=== PATIENT | female | born 1950 | race Caucasian/White ===

== ENCOUNTER 2017-04-03 10:26 | Emergency (ER) | payer MEDICARE, OTHER, SELFPAY ==
[2017-04-03 10:49] VITALS: BP 147/82; PULSE 68; RESP 20; TEMP 36.9; O2SAT 95; BMI 33.3
--- NOTE | 2017-04-03 10:57 | XR_ITS ---
XR chest 2V HISTORY: ITS.REASON: COUGH ORDERING PHYSICIAN: Court Christopher PATIENT AGE: 66 years COMPARISON: None available FINDINGS: Normal heart size. There is some increased density left hilum probably related to overlying pulmonary artery and may be confirmed with follow-up. Coronary artery calcifications are present.. The lungs are clear without infiltrates, suspicious nodules, or pleural effusions. Mild hyperinflation with attenuation of the pulmonary vessels consistent with COPD/obstructive chronic bronchitis No acute bony abnormalities. IMPRESSION: COPD, nonacute findings as described above
--- NOTE | 2017-04-03 10:57 | HMH.EDUTC ---
[facility] [place] Impression: Influenza Disposition: Home, Self-Care Condition on Discharge: Good Instructions: Influenza, Cough Additional Instructions: ? Start Tamiflu today if you are going to take it. Discussed risk and possible benefits. ? Lots of rest ? Increase Fluids water, Gatorade, powerade, pedialyte,if infant/toddler/child ? Alternate Tylenol and / or ibuprofen as discussed for fever, aches, chills x 24 hours without medication for symptoms ? Follow up IMMEDIATELY for new or worsening Symptoms OR no noticeable improvement over the next 48-72 hours, 911 for difficulty or breathing ? You or your child area contagious until no fever, aches, chills for 24 hours with medication for symptoms Prescriptions: Dextromethorphan Polistirex [Delsym] 10 ml PO Q12H #200 genesis.er.12h Oseltamivir Phosphate [Tamiflu 75mg Capsule] 75 mg PO BID #10 capsule Referrals: Stan Dahl MD [Primary Care Provider] - Time of Disposition: 11:33 Medical Decision Making Vital Signs: 04/03/17 10:49 Temperature 98.4 F Temperature Source Temporal Artery Scan Pulse Rate [Right Brachial] 68 Respiratory Rate 20 Blood Pressure [Right Arm] 147/82 Blood Pressure Mean [Right Arm] 103 Blood Pressure Source [Right Arm] Automatic Cuff Blood Pressure Position [Right Arm] Sitting 02 Sat by Pulse Oximetry 95 Oxygen Delivery Method Room Air - Lab Data Lab Results 04/03/17 10:55: Influenza Type A Ag Positive A, Influenza Type B Ag Negative Orders (Tests/Meds): ORDERS Category Date Time Status Chest XR 2 view (NOT portable) [XR chest 2V] Stat Exams 04/03/17 10:57 Taken - Radiology Data #1 Image(s): Chest Image Reviewed: Yes I discussed the image results w/the radiologist Preliminary Findings: Normal/NAD - Milton Inquiry Pt receiving controlled substance: No [place] was queried for this patient: No [facility] [place] - General Stated complaint: cough congested stiff neck Mode of Arrival: Ambulatory Source of Information: Patient Limitations: No Limitations Description of Symptoms (Recalled from Triage Doc. by RN): C/O COUGH AND CONGESTION HEENT Symptoms (Recalled from RN notes): No Resp Symptoms (Recalled from RN notes): Yes (COUGH AND CONGESTION) Skin Symptoms (Recalled from RN notes): No MS Symptoms (Recalled from RN notes): No Functional Status (Recalled from RN notes): N/A - History of Present Illness Provider Complaint: Patient state that she feels like she may have bronchitis State that she has had a cough for several weeks that has continued and having sinus pain and pressure State that she has had bronchitis several times this year and feels simular to that State that she feels like her lymph nodes in her neck is swollen and has been coughing so much her neck muscles feel sore - Related Data Home Medications Medication Instructions Recorded Confirmed Aspirin [Aspirin 81mg chewable 81 mg PO DAILY 04/03/17 04/03/17 tab] Atorvastatin Calcium [Atorvastatin 40 mg PO DAILY 04/03/17 04/03/17 40mg Tab] Furosemide [Furosemide 20mg Tab] 20 mg PO DAILY 04/03/17 04/03/17 Pantoprazole Sodium [Protonix 40mg 40 mg PO DAILY 04/03/17 04/03/17 tablet] Previous Rx's Medication Instructions Recorded Dextromethorphan Polistirex 10 ml PO Q12H #200 genesis.er.12h 04/03/17 [Delsym] Oseltamivir Phosphate [Tamiflu 75 mg PO BID #10 cap 04/03/17 75mg Capsule] Allergies Allergy/AdvReac Type Severity Reaction Status Date / Time No Known Allergies Allergy Unverified 03/12/17 15:03 - Worker's Comp Is this a Worker's Comp case?: No [facility] History I have reviewed the patient's past medical history: Yes - *Social History Smoking Status: Never smoker Alcohol Intake: never - Psychiatric History Expresses thoughts of harming self/others: None Suicide Plan Description: No Plan ROS Obtained: Yes All systems reviewed & no additional complaints Physical Exam - General General
--- NOTE | 2017-04-03 11:00 | ED_ITS ---
[facility] – [place] Clinical Impression: Influenza Disposition: Home, Self-Care Condition on Discharge: Good Instructions: Influenza, Cough Additional Instructions: ? Start Tamiflu today if you are going to take it. Discussed risk and possible benefits. ? Lots of rest ? Increase Fluids water, Gatorade, powerade, pedialyte,if infant/toddler/child ? Alternate Tylenol and / or ibuprofen as discussed for fever, aches, chills x 24 hours without medication for symptoms ? Follow up IMMEDIATELY for new or worsening Symptoms OR no noticeable improvement over the next 48-72 hours, 911 for difficulty or breathing ? You or your child area contagious until no fever, aches, chills for 24 hours with medication for symptoms Prescriptions: Dextromethorphan Polistirex [Delsym] 10 ml PO Q12H #200 genesis.er.12h Oseltamivir Phosphate [Tamiflu 75mg Capsule] 75 mg PO BID #10 capsule Referrals: Stan Dahl MD [Primary Care Provider] - Time of Disposition: 11:33 Medical Decision Making Vital Signs: 04/03/17 10:49 Temperature 98.4 F Temperature Source Temporal Artery Scan Pulse Rate [Right Brachial] 68 Respiratory Rate 20 Blood Pressure [Right Arm] 147/82 Blood Pressure Mean [Right Arm] 103 Blood Pressure Source [Right Arm] Automatic Cuff Blood Pressure Position [Right Arm] Sitting 02 Sat by Pulse Oximetry 95 Oxygen Delivery Method Room Air - Lab Data Lab Results 04/03/17 10:55: Influenza Type A Ag Positive A, Influenza Type B Ag Negative Orders (Tests/Meds): ORDERS Category Date Time Status Chest XR 2 view (NOT portable) [XR chest 2V] Stat Exams 04/03/17 10:57 Taken - Radiology Data #1 Image(s): Chest Image Reviewed: Yes I discussed the image results w/the radiologist Preliminary Findings: Normal/NAD - Milton Inquiry Pt receiving controlled substance: No Milton was queried for this patient: No [facility] [place] HPI - General Stated complaint: cough congested stiff neck Mode of Arrival: Ambulatory Source of Information: Patient Limitations: No Limitations Description of Symptoms (Recalled from Triage Doc. by RN): C/O COUGH AND CONGESTION HEENT Symptoms (Recalled from RN notes): No Resp Symptoms (Recalled from RN notes): Yes (COUGH AND CONGESTION) Skin Symptoms (Recalled from RN notes): No MS Symptoms (Recalled from RN notes): No Functional Status (Recalled from RN notes): N/A - History of Present Illness Provider Complaint: Patient state that she feels like she may have bronchitis State that she has had a cough for several weeks that has continued and having sinus pain and pressure State that she has had bronchitis several times this year and feels simular to that State that she feels like her lymph nodes in her neck is swollen and has been coughing so much her neck muscles feel sore - Related Data Home Medications Medication Instructions Recorded Confirmed Aspirin [Aspirin 81mg chewable 81 mg PO DAILY 04/03/17 04/03/17 tab] Atorvastatin Calcium [Atorvastatin 40 mg PO DAILY 04/03/17 04/03/17 40mg Tab] Furosemide [Furosemide 20mg Tab] 20 mg PO DAILY 04/03/17 04/03/17 Pantoprazole Sodium [Protonix 40mg 40 mg PO DAILY 04/03/17 04/03/17 tablet] Previous Rx's Medication Instructions Recorded Dextromethorphan Polistirex 10 ml PO Q12H #200 genesis.er.12h 04/03/17
[2017-04-03 11:09] LABS: UTC Influenza A Antigen Positive (Negative); UTC Influenza B Antigen Negative (Negative)
== END 2017-04-03 11:37 | disposition home or self-care (01) ==
PROVIDERS: Emergency Provider Nurse Practitioner; PCP Internal Medicine
DX: J10.1 Influenza due to other identified influenza virus with other respiratory manifestations (principal)
CPT/HCPCS: G0463; 71046; 87804; 99202

== ENCOUNTER → 2017-11-07 06:25 | Outpatient (CLI) | payer MEDICARE, OTHER, SELFPAY ==
--- NOTE | 2017-11-07 06:28 | NM_ITS ---
History and Indications: Coronary artery disease, history of NM, fatigue and left arm pain Procedure: Patient exercised on Frantz protocol 6 minutes, resting heart rate was 64 bpm, resting blood pressure 157/80, with exercise maximum heart rate achieved was 1 42 bpm which is equal to 94% of the maximum predicted heart rate and a blood pressure was 196/92. Test was stopped due to fatigue patient denied any complained of chest pain, patient has adequate exercise capacity achieved 7 mets of workload on treadmill, the blood pressure response to exercise was adequate. Electrocardiogram: Resting electrocardiogram showed sinus rhythm, with exercise there is less than 1.[address] segment depression noted from the baseline EKG. The EKG portion of the exercise Myoview is negative for ischemia. Cardiac stress and resting SPECT images: Cardiac stress and rest SPECT images were obtained using technetium 99 Myoview 30.4 mCi at stress and 10.1 mCi at rest. Gated SPECT further analysis of segmental wall motion and calculation of ejection fraction also done. Cardiac stress and rest images show uniform myocardial activity without any segmental perfusion abnormality, computer derived ejection fraction is 63% with no obvious regional wall motion abnormality, right ventricle is normal size and contractility. Conclusion: 1. The EKG portion of the exercise Myoview is negative for ischemia, patient has adequate exercise capacity achieved 7mets of workload on treadmill, the blood pressure response to exercise was adequate, there was no exercise-induced chest discomfort. 2. No obvious scintigraphic evidence of reversible ischemia seen, computer derived ejection fraction is 63% with no obvious regional wall motion abnormality, right ventricle is normal size and contractility. 3. Normal exercise Myoview study.
--- NOTE | 2017-11-07 06:28 | CA_ITS ---
PROCEDURE: 2-D M-mode and color Doppler study INDICATIONS FOR THE TEST: Chest pain COPD Heart Murmur Tobacco Smoking Palpitations Fatigue Syncope Edema+ Hypertension+Diabetes Mellitus Rheumatic Fever SOB+ALEGRIA Obesity Hyperlipidemia+ Family History HD Additional History LT arm pain, CAD, KHOI, emphysema PATIENT INFORMATION HEIGHT: 65 WEIGHT: 210 GENDER: Female B/P: 132/80 2-D/M-MODE INTERPRETATION: 2-D MEASUREMENTS OBSERVED VALUES IN CMS Right Ventricular Dimension (RVDd) 2.5 Interventricular Septum (Thickness)(IVsd) 1.0 Left Ventricular Internal Dimensions(LVIDd) 5.1 Left Ventricular Posterior Wall (Thickness)(LVPWd) 1.0 Aortic Root 3.6 Aortic Cusp Separation 2.6 Left Atrial Dimensions (LAD) 3.8 2D 1. Left atrium is qualitatively mildly enlarged, left ventricle is normal size, mild qualitative concentric left ventricular hypertrophy, visually estimated ejection fraction 55% with no obvious regional wall motion abnormality. 2. The right atrium and right ventricle are normal size and contractility. 3. The aortic valve is minimally thickened and fibrosed. 4. The mitral and tricuspid valve are grossly normal. 5. The pulmonic valve is poorly visualized. 6. No significant pericardial effusion noted. DOPPLER INTERROGATION: Doppler interrogation of the aortic, mitral and tricuspid valvular presence of mild mitral and tricuspid regurgitation, tricuspid regurgitation jet velocity is insufficient for acquisition of the right ventricular systolic pressure, grade 1 diastolic dysfunction seen with tissue Doppler evidence of raised left atrial pressure. Mild aortic insufficiency also seen. CONCLUSION: 1. Mildly left atrium, normal left ventricular size, mild qualitative concentric left ventricular hypertrophy, visually estimated ejection fraction 55% with no obvious regional wall motion abnormality, grade 1 diastolic dysfunction seen with tissue Doppler evidence of raised left atrial pressure. 2. Mild aortic, mitral and tricuspid regurgitation 3. No significant pericardial effusion noted.
--- NOTE | 2017-11-07 10:32 | HMH.ITSHM ---
ASA ATORVASTATIN PANTOPROZOLE FUROSEMIDE
== END ==
PROVIDERS: Visit Provider Internal Medicine
DX: I25.10 Atherosclerotic heart disease of native coronary artery without angina pectoris (principal)
CPT/HCPCS: 78452; 93017; 93306; A9502

== ENCOUNTER → 2018-02-17 10:24 | Outpatient (CLI) | payer MEDICARE, OTHER, SELFPAY ==
[2018-02-17 10:48] LABS: Basophils # 0.1 K/mm3 (0-0.2); Basophils % 0.9 % (0.1-2.0); Eosinophils # 0.1 K/mm3 (0.0-0.4); Eosinophils % 2.3 % (0.1-12.0); Hematocrit 42.5 % (37.0-47.0); Hemoglobin 13.6 g/dL (12.2-16.2); Lymphocytes # 1.1 K/mm3 (0.7-4.5); Lymphocytes % 18.7 % (10-50); Mean Corpuscular HGB Conc 32.1 g/dL (31.8-35.4); Mean Corpuscular Hemoglobin 29.8 pg (27.0-31.2); Mean Platelet Volume 7.2 fl (7.4-10.4); Monocytes # 0.3 K/mm3 (0.1-1.0); Monocytes % 5.8 % (1.7-9.3); Neutrophils # 4.3 K/mm3 (1.8-7.8); Neutrophils % 72.3 % (37.0-80.0); Platelet Count 368 K/mm3 (142-424); Red Blood Count 4.57 M/mm3 (4.20-5.40); Red Cell Distribution Width 14.1 % (11.5-17.5); White Blood Count 5.9 K/mm3 (4.8-10.8)
[2018-02-17 11:43] LABS: Alanine Aminotransferase 27 U/L (12-78); Albumin Level 3.4 gm/dL (3.4-5.0); Alkaline Phosphatase 110 U/L (46-116); Anion Gap 12.7 mEq/L (5-15); Aspartate Amino Transferase 15 U/L (15-37); Bilirubin,Direct 0.2 mg/dL (0.0-0.2); Bilirubin,Indirect 0.5 mg/dL (0.0-0.9); Bilirubin,Total 0.7 mg/dL (0.2-1.0); Blood Urea Nitrogen 9 mg/dL (7-18); Calcium 8.7 mg/dL (8.5-10.1); Carbon Dioxide 28 mmol/L (21.0-32.0); Chloride 104 mmol/L (98-107); Chol/HDL Ratio 2.3 (1-3.5); Cholesterol 149 mg/dL (140-200); Creatinine,Serum 0.48 mg/dL (0.55-1.02); Estimated Glomerular Filt Rate 128 ml/min (>60); Free T4 (Free Thyroxine) 1.05 ng/dl (0.76-1.46); GFR (African American) 155 ML/MIN (>60); Glucose 98 mg/dL (74-106); HDL Cholesterol 64 mg/dL (29-89); LDL Cholesterol 71 mg/dL (0-130); Potassium 4.7 mmoL/L (3.5-5.1); Sodium 140 mmol/L (136-145); Thyroid Stimulating Hormone 1.35 uIU/ml (0.358-3.740); Total Protein,Serum 6.6 gm/dL (6.4-8.2); Triglycerides 69 mg/dL (30-200); VLDL Cholesterol 14 mg/dL (0-40)
== END ==
PROVIDERS: Visit Provider Internal Medicine
DX: E78.5 Hyperlipidemia, unspecified (principal); I25.10 Atherosclerotic heart disease of native coronary artery without angina pectoris; I65.29 Occlusion and stenosis of unspecified carotid artery; M79.601 Pain in right arm; I11.9 Hypertensive heart disease without heart failure
CPT/HCPCS: 36415; 80048; 80061; 80076; 84439; 84443; 85025

== ENCOUNTER → 2018-02-24 10:05 | Outpatient (CLI) | payer MEDICARE, OTHER, SELFPAY ==
--- NOTE | 2018-02-24 10:08 | CI_ITS ---
Cerebrovascular Exam Indications: 433.10 Occlusion/stenosis of carotid artery without cerebral infarction. IMPRESSIONS 1. The bilateral vertebral arteries are patent with normal antegrade flow. 2. Study suggests less than 20% stenosis involving the right internal carotid artery and the left internal carotid artery. 3. Tortuous carotid arteries seen bilaterally. Carotid duplex study. Complete study and Doppler flow study including spectral analysis, color and ybarra scale imaging. Height: Height: 165.1cm. Height: 65in. Weight: Weight: 90.7kg. Weight: 199.6lb. Body mass index: BMI: 33.3kg/m^2. Body surface area: BSA: 2.07m^2. Location: Vascular laboratory. Patient status: Outpatient. Tables: Arterial flow: + +--------+--------+ Location V sys V ed + +--------+--------+ Right CCA - proximal 57.4cm/s 17.3cm/s + +--------+--------+ Right CCA - distal 55.8cm/s 22cm/s + +--------+--------+ Right ECA 42.4cm/s -------- + +--------+--------+ Right ICA - proximal 68.4cm/s 27.5cm/s + +--------+--------+ Right ICA - mid 78.2cm/s 38.1cm/s + +--------+--------+ Right ICA - distal 84.9cm/s 31.4cm/s + +--------+--------+ Right vertebral 28.3cm/s -------- + +--------+--------+ Left CCA - proximal 65.2cm/s 22cm/s + +--------+--------+ Left CCA - distal 55cm/s 22cm/s + +--------+--------+ Left ECA 53.5cm/s -------- + +--------+--------+ Left ICA - proximal 61.3cm/s 26.7cm/s + +--------+--------+ Left ICA - mid 71.5cm/s 36.1cm/s + +--------+--------+ Left ICA - distal 61.3cm/s 29.9cm/s + +--------+--------+ Left vertebral 37.7cm/s -------- + +--------+--------+ Velocity ratios: + + + + + + Right, V sys Right, V ed Left, V sys Left, V ed + + + + + + Max ICA/dist CCA 1.52 1.73 1.3 1.64 + + + + + + (Report amended ) Electronically signed by: Mehrdad Frost [id number]
== END ==
PROVIDERS: Visit Provider Internal Medicine
DX: I65.23 Occlusion and stenosis of bilateral carotid arteries (principal)
CPT/HCPCS: 93880

== ENCOUNTER → 2019-02-17 08:42 | Outpatient (CLI) | payer MEDICARE, OTHER, SELFPAY ==
[2019-02-17 09:05] LABS: Blood Urea Nitrogen 11 mg/dL (7-18); Creatinine,Serum 0.62 mg/dL (0.55-1.02); Estimated Glomerular Filt Rate 95 ml/min (>60); GFR (African American) 115 ML/MIN (>60)
--- NOTE | 2019-02-17 09:22 | US_ITS ---
APPROVED REPORT Exam Type: Ankle to Brachial Index Moisture Tester: Umu Ball CRT Indications CAD Risk Factors Hyperlipidemia Pressures/Indices Right Indices Left Indices Brachial 122.00 mmHg Brachial 117.00 mmHg Low Thigh 131.00 mmHg 1.07 Low Thigh 133.00 mmHg 1.09 Calf 123.00 mmHg 1.01 Calf 147.00 mmHg 1.20 Ankle(PT) 156.00 mmHg 1.28 Ankle(PT) 146.00 mmHg 1.20 Ankle(DP) 135.00 mmHg 1.11 Ankle(DP) 117.00 mmHg 0.96 Digit 88.00 mmHg 0.72 Digit 88.00 mmHg 0.72 Findings R MILTON 1.3 L MILTON 1.2 normal waveforms normal pulses. R TBI 0.7 L TBI 0.7 Conclusion No evidence significant arterial disease throughout the right and left lower extremities as evidenced by normal resting PVR waveforms and normal resting indices. Electronically signed by : Mehrdad Frost MD 02/18/2019 14:36:37
--- NOTE | 2019-02-17 09:48 | MR_ITS ---
PROCEDURE: MR FOOT RT WO/W CON CLINICAL INDICATION: pain, soft tissue mass, soft tissue mass on the dorsal aspect of the foot, cuboid avulsion fracture COMPARISON: XR ANKLE RT MIN 3V from 01/23/2019 TECHNIQUE: Routine multiplanar multi echo sequences are performed without and with gadolinium enhancement. FINDINGS: Small area of decreased T1 and increased T2 signal involves the base of the 4th metatarsal at the cuboid metatarsal junction. This is nonspecific and does demonstrate some contrast enhancement. This area measures approximately 6 mm. There is no obvious bone marrow edema at the cuboid region. The avulsion fracture here is not definitely identified by MRI. There are osteoarthritic changes of the 1st metatarsophalangeal joint. There is also slight increased T2 signal involving the anterior distal aspect of the fibula with questionable minimal enhancement at this area. There is a small amount fluid at the ankle joint anteriorly and posteriorly and at the anterior lateral aspect of the ankle joint. The tibiofibular and talofibular ligaments appear intact. Deltoid ligament also appears intact. There is a lobular subcutaneous cystic lesion involving the anterior lateral aspect of the foot superficial to the and lateral to the 3rd and 4th metatarsal tarsal junction. This measures 1.8 cm transverse, 0.8 cm in thickness, and 2 cm in length consistent with a ganglion cyst superficial to the extensor digitorum longus tendon. This does not demonstrate any significant contrast enhancement IMPRESSION: 1. Ganglion cyst along the dorsal lateral aspect of the foot at the 3rd and 4th metatarsal tarsal junction superficial to the extensor digitorum longus tendon measuring 2 x 1.8 x 0.8 cm 2. Abnormal signal intensity at the base of the 4th metatarsal and at the distal aspect and anterior aspect of the fibula the. Both of these areas show slight decreased T1 and increased T2 signal with some mild enhancement. They are of unknown etiology and could represent an inflammatory or infectious process or even neoplastic process. Correlation with clinical parameters needed. Would consider a whole body bone scan to search for other lesions and to determine if these areas demonstrate increased activity. Dictated by: Mehrdad Frost MD 02/18/2019 12:43 Electronically signed by Mehrdad Frost MD in [place] 02/19/2019 08:46
--- NOTE | 2019-02-17 10:54 | HMH.ITSHM ---
Current Home Medications as stated by this patient Jenna Hernández or junior sales representative. []ASPIRIN ATORVASTATIN PANTOPRAZOLE FUROSEMIDE
== END ==
PROVIDERS: PCP Podiatrist; Visit Provider Podiatrist
DX: I73.9 Peripheral vascular disease, unspecified (principal); M67.471 Ganglion, right ankle and foot
CPT/HCPCS: 36415; 73720; 82565; 84520; 93923; A9576

== ENCOUNTER → 2019-03-23 08:50 | Outpatient (CLI) | payer MEDICARE, OTHER, SELFPAY ==
--- NOTE | 2019-03-23 08:51 | NM_ITS ---
PROCEDURE: NM BONE SCAN LIMITED AREA CLINICAL INDICATION: abnormal MRI, pain Foot pain, abnormal MRI COMPARISON: MR FOOT RT WO/W CON from 02/17/2019 TECHNIQUE: Static images are obtained of both feet following the intravenous administration of 25.5 mCi technetium MDP FINDINGS: Are small foci of increased activity involving the distal fibula and at the base of the 4th metatarsal. These findings are nonspecific. The activity is not as intense as what 1 would expect for an osteoblastic lesion or focus area of infection. IMPRESSION: Nonspecific focal increased activity in the distal fibula and the base of the 4th metatarsal on the right corresponding to the MRI abnormalities of questionable clinical significance Dictated by: Mehrdad Frost MD 03/31/2019 09:41 Electronically signed by Mehrdad Frost MD in [place] 03/31/2019 09:41
--- NOTE | 2019-03-23 09:10 | HMH.ITSHM ---
Current Home Medications as stated by this patient Jenna Hernández or circulation representative. []PANTOPRAZOLE NITRO FUROSEMIDE ATORVASTATIN ASA
== END ==
PROVIDERS: PCP Podiatrist; Visit Provider Podiatrist
DX: M19.071 Primary osteoarthritis, right ankle and foot (principal); M25.571 Pain in right ankle and joints of right foot; M67.471 Ganglion, right ankle and foot; S92.211A Displaced fracture of cuboid bone of right foot, initial encounter for closed fracture
CPT/HCPCS: 78300; A9503

== ENCOUNTER → 2019-08-17 09:20 | Outpatient (CLI) | payer MEDICARE, OTHER, SELFPAY ==
[2019-08-17 11:09] LABS: Alanine Aminotransferase 11 U/L (12-78); Albumin Level 3.7 g/dl (3.5-5.0); Alkaline Phosphatase 90 U/L (38-126); Anion Gap 7.5 mEq/L (5-15); Aspartate Amino Transferase 22 U/L (14-36); Bilirubin,Indirect 0.8 mg/dL (0.0-0.9); Bilirubin,Total 0.8 mg/dl (0.2-1.3); Bilirubin,Unconjugated 0.8 mg/dL (0.0-1.1); Blood Urea Nitrogen 13 mg/dl (7-17); Calcium 9.3 mg/dl (8.4-10.2); Carbon Dioxide 29 mmol/L (22.0-30.0); Chloride 104 mmol/L (98-107); Chol/HDL Ratio 1.9 (1-3.5); Cholesterol 128 mg/dl (140-200); Estimated Glomerular Filt Rate 99 ml/min (>60); GFR (African American) 120 ML/MIN (>60); Glucose 106 mg/dl (74-100); HDL Cholesterol 69 mg/dl (40-60); Potassium 4.5 mmoL/L (3.5-5.1); Sodium 136 mmol/L (136-145); Total Protein,Serum 6.3 g/dl (6.3-8.2); Triglycerides 80 mg/dl (30-150); VLDL Cholesterol 16 mg/dL (0-40)
[2019-08-17 11:19] LABS: Direct LDL Cholesterol 63.54 mg/dL (100-129)
== END ==
PROVIDERS: Visit Provider Physician Assistant
DX: E78.5 Hyperlipidemia, unspecified (principal); I65.29 Occlusion and stenosis of unspecified carotid artery; I11.9 Hypertensive heart disease without heart failure; Z79.899 Other long term (current) drug therapy
CPT/HCPCS: 36415; 80048; 80061; 80076

== ENCOUNTER → 2019-08-21 14:10 | Outpatient (CLI) | payer MEDICARE, OTHER, SELFPAY ==
--- NOTE | 2019-08-21 14:12 | CA_ITS ---
APPROVED REPORT EXAM: Comprehensive 2D, Doppler, and color-flow Echocardiogram Premix Operator Concentrate: Bria Brandt RVT Ht: 5 ft 5 in Wt: 205lbs BSA: 2.00 BP: 149/87 mmHg Indications: CP,HTN,EX SMOKER,OBESITY,HTN,HLD,CAD,GERD,HX OK, STENTS 2D Dimensions LVOT 2.11 cm (M/F) 1.5-2.5 M-Mode Dimensions RVDd 3.31 cm (0.9-2.6) LVDd 4.96 cm (3.5-5.7) LVDs 3.44 cm (3.5-5.7) IVSd 1.02 cm (0.6-1.1) PWd 0.76 cm (0.6-1.1) EF (Teich) 58.00% FS 30.60% EDV (Teich) 116.10 mL ESV (Teich) 48.80 mL LV Diastology E/A Ratio 1.14 Mitral Valve MV A Velocity 74.00 (40-130 cm/s) Left Ventricle Left atrium is mildly enlarged, the ventricle is normal size, mild concentric left ventricular hypertrophy, visually estimated ejection fraction 55% with no regional wall motion abnormality, grade 1 diastolic dysfunction seen without tissue Doppler evidence of raise left atrial pressure. Right Ventricle Right atrium left ventricular normal size and contractility. Aortic Valve Aortic valve is thickened and calcified but currently still good mobility, there is aortic stenosis, there is mild aortic insufficiency. Mitral Valve Mitral valve is minimally thickened, there is mild mitral regurgitation. Tricuspid Valve Tricuspid valve grossly normal, there is mild tricuspid regurgitation, tricuspid regurgitation jet loss is inadequate for calculation of the right ventricular systolic pressure. Pulmonic Valve Pulmonic valve is poorly visualized. Great Vessels Aortic root is normal size. Pericardium No significant pericardial effusion noted. Conclusion 1. Mildly enlarged left atrium, normal left ventricular size, mild concentric left ventricular hypertrophy, visually estimated ejection fraction 55% with no regional wall motion abnormality, grade 1 diastolic dysfunction seen without tissue Doppler evidence of raise left atrial pressure. 2. Mild aortic, mild mitral and tricuspid regurgitation. 3. No significant pericardial effusion noted. Electronically signed by : Abdelrahman Pantoja, 08/24/2019 20:31:47
== END ==
PROVIDERS: PCP Internal Medicine; Visit Provider Nurse Practitioner Family
DX: E78.2 Mixed hyperlipidemia (principal); I11.9 Hypertensive heart disease without heart failure; I25.10 Atherosclerotic heart disease of native coronary artery without angina pectoris; I65.23 Occlusion and stenosis of bilateral carotid arteries; J43.9 Emphysema, unspecified; R06.00 Dyspnea, unspecified
CPT/HCPCS: 93306

== ENCOUNTER → 2020-01-04 11:05 | Outpatient (CLI) | payer MEDICARE, OTHER, SELFPAY ==
[2020-01-04 11:37] LABS: Basophils % 0.6 % (0.1-2.0); Eosinophils # 0.1 K/mm3 (0.0-0.4); Eosinophils % 1.3 % (0.1-12.0); Hematocrit 42.5 % (37.0-47.0); Hemoglobin 13.3 g/dL (12.2-16.2); Lymphocytes % 16.3 % (10-50); Mean Corpuscular HGB Conc 31.4 g/dL (31.8-35.4); Mean Corpuscular Hemoglobin 29.7 pg (27.0-31.2); Mean Corpuscular Volume 94.6 fl (81-99); Mean Platelet Volume 7.5 fl (7.4-10.4); Monocytes # 0.3 K/mm3 (0.1-1.0); Monocytes % 5.6 % (1.7-9.3); Neutrophils # 4.6 K/mm3 (1.8-7.8); Neutrophils % 76.3 % (37.0-80.0); Platelet Count 382 K/mm3 (142-424); Red Blood Count 4.49 M/mm3 (4.20-5.40); Red Cell Distribution Width 13.3 % (11.5-17.5)
[2020-01-04 12:40] LABS: Anion Gap 11.8 mEq/L (5-15); Blood Urea Nitrogen 8 mg/dl (7-17); Calcium 9.5 mg/dl (8.4-10.2); Carbon Dioxide 29 mmol/L (22.0-30.0); Chloride 103 mmol/L (98-107); Estimated Glomerular Filt Rate 122 ml/min (>60); GFR (African American) 147 ML/MIN (>60); Glucose 98 mg/dl (74-100); Potassium 4.8 mmoL/L (3.5-5.1); Sodium 139 mmol/L (136-145)
== END ==
PROVIDERS: Visit Provider Nurse Practitioner Family
DX: T14.8XXA Other injury of unspecified body region, initial encounter (principal); E78.2 Mixed hyperlipidemia; I11.9 Hypertensive heart disease without heart failure; I25.10 Atherosclerotic heart disease of native coronary artery without angina pectoris; I65.23 Occlusion and stenosis of bilateral carotid arteries; J43.9 Emphysema, unspecified; K21.9 Gastro-esophageal reflux disease without esophagitis
CPT/HCPCS: 36415; 80048; 85025

== ENCOUNTER → 2020-01-26 09:31 | Outpatient (POV) | payer MEDICARE, OTHER, SELFPAY | PROVIDERS: Visit Provider Dermatology | DX: Z00.00 Encounter for general adult medical examination without abnormal findings (principal) ==

== ENCOUNTER → 2020-02-16 10:30 | Outpatient (POV) | payer MEDICARE, OTHER, SELFPAY | PROVIDERS: Visit Provider Dermatology | DX: Z00.00 Encounter for general adult medical examination without abnormal findings (principal) ==

== ENCOUNTER 2020-02-29 15:17 | Emergency (ER) | payer MEDICARE, OTHER, SELFPAY ==
[2020-02-29 16:11] VITALS: BP 134/83; PULSE 87; RESP 17; TEMP 36.4; O2SAT 98
--- NOTE | 2020-02-29 16:13 | HMH.EDUTC ---
[facility] [place] Disposition Clinical Impression: URI (upper respiratory infection) Qualifiers: URI type: unspecified URI Qualified Code(s): J06.9 - Acute upper respiratory infection, unspecified Disposition: Home, Self-Care Condition on Discharge: Good Instructions: Sinusitis, DI for Cough -- Adult, Preventing the Spread of Coronavirus Discharge Instructions Additional Instructions: *Monitor Temp, Over the counter Motrin or Tylenol as directed/as needed Tylenol every 4 hours and Motrin every 6 hours (as long as your family doctor has told you that you can take it) for fever or pain. and straight to ER if unable to lower temp less than 101.0 after medication given *Warm salt water gargles may help to soothe the throat *Throat Lozenges *Warm fluids like tea with honey may help to soothe the throat *Sleep elevated *Humidifier/Vaporizer *Flonase 2 sprays in each nostril daily but be aware that it may take 2-3 days before you notice improvement Follow up IMMEDIATELY for new or worsening symptoms or no Noticeable improvement over the next 48-72 hours. 911 for difficulty breathing or swallowing You were tested for today for COVID19 your test result should be back in the next 24-48 hours, you may call to the [facility] to see if your test results are back in the next 48 hours [phone] [facility] hours are 9am-9pm You was given a handout with instructions for Self Quarantine and Self isolation for while you wait on test results and what to do if they are positive If you are positive the Health Dept will be contacting you also Prescriptions: Albuterol Sulfate [Proventil-HFA 90mcg/puff Inh] 1 - 2 puffs IH Q4HP PRN #1 inh PRN Reason: Shortness Of Breath Transmission Status: Received by [facility] Benzonatate [Tessalon Perle 100mg Cap*] 100 mg PO TID PRN #15 cap PRN Reason: Cough Transmission Status: Received by [facility] Referrals: PCP,No [Primary Care Provider] - Time of Disposition: 16:18 Medical Decision Making - Milton Inquiry Pt receiving controlled substance: No Milton was queried for this patient: No Vital Signs: 02/29/20 16:11 02/29/20 16:14 Temperature 97.6 F 97.6 F Temperature Source Oral Oral Pulse Rate 87 Pulse Rate [Left] 87 Respiratory Rate 17 17 Blood Pressure 134/83 Blood Pressure [Right Arm] 134/83 Blood Pressure Mean [Right Arm] 100 Blood Pressure Source [Right Arm] Automatic Cuff Blood Pressure Position [Right Arm] Sitting 02 Sat by Pulse Oximetry 98 Oxygen Delivery Method Room Air Orders (Tests/Meds): ED MEDICATIONS Discontinued Medications Generic Name Dose Route Start Last Admin Trade Name Bryant PRN Reason Stop Dose Admin Ceftriaxone Sodium 1 gm 02/29/20 16:16 02/29/20 16:18 Ceftriaxone 1gm Vial IM 02/29/20 16:17 1 gm ONCE ONE Administration Protocol Lidocaine HCl 0 ml 02/29/20 16:16 02/29/20 16:37 Lidocaine 1% 5ml Pf Vial IM 02/29/20 16:17 2.3 ml ONCE ONE Administration ORDERS Category Date Time Status Covid-19 Nasal PCR Sendout Fei Stat Lab 02/29/20 16:[address] [facility] [place] HPI - General Stated complaint: Stuffiness, chest congestion Time Seen by Provider: 02/29/20 16:13 - History of Present Illness Provider Complaint: Patient states that she feels like she has a sinus infection or Upper Respiratory infection State that she has been having sinus congestion with drianage in the back of her throat and feeling like it is causing her stomach to be upset States that when she gets like this she sometimes has to get injection of medication to help State that she also wants to get tested for COVID due to the symptoms she is having and wants a refill on her inhaler - Related Data Home Medications Medication Instructions Recorded Confirmed Aspirin [Aspirin 81mg chewable 81 mg PO DAILY 04/03/17 01/19/20 tab] furosemide 20 mg tablet 20 mg PO BID tab 01/19/20 01/19/20 Previous Rx's Medication Instruc
[2020-02-29 16:14] VITALS: BP 134/83; PULSE 87; RESP 17; TEMP 36.4; O2SAT 98; BMI 33.3
[2020-03-02 13:54] LABS: Covid-19 Nasal PCR Sendout Lex POSITIVE
--- NOTE | 2020-03-02 14:03 | PC.NURSE ---
Patient notified of positive COVID results. Educated on quarantine.
== END 2020-02-29 16:38 | disposition home or self-care (01) ==
PROVIDERS: Emergency Provider Nurse Practitioner
DX: U07.1 COVID-19 (principal); I10 Essential (primary) hypertension; E78.5 Hyperlipidemia, unspecified; K21.9 Gastro-esophageal reflux disease without esophagitis; I25.10 Atherosclerotic heart disease of native coronary artery without angina pectoris; Z87.891 Personal history of nicotine dependence; Z79.899 Other long term (current) drug therapy
CPT/HCPCS: G0463; 96372; 99202; U0004

== ENCOUNTER → 2020-07-13 12:34 | Outpatient (CLI) | payer MEDICARE, OTHER, SELFPAY ==
[2020-07-13 14:31] LABS: Alanine Aminotransferase 14 U/L (12-78); Albumin Level 4.1 g/dl (3.5-5.0); Alkaline Phosphatase 107 U/L (38-126); Aspartate Amino Transferase 23 U/L (14-36); Bilirubin,Indirect 0.9 mg/dL (0.0-0.9); Bilirubin,Total 0.9 mg/dl (0.2-1.3); Bilirubin,Unconjugated 0.9 mg/dL (0.0-1.1); Chol/HDL Ratio 2.2 (1-3.5); Cholesterol 161 mg/dl (140-200); HDL Cholesterol 73 mg/dl (40-60); Total Protein,Serum 6.6 g/dl (6.3-8.2); Triglycerides 161 mg/dl (30-150); VLDL Cholesterol 32 mg/dL (0-40)
[2020-07-13 14:50] LABS: Direct LDL Cholesterol 66.28 mg/dL (100-129)
[2020-07-13 14:51] LABS: Free T4 (Free Thyroxine) 1.43 ng/dl (0.78-2.19)
[2020-07-13 15:04] LABS: Thyroid Stimulating Hormone 0.98 uIU/mL (0.465-4.68)
== END ==
PROVIDERS: Visit Provider Nurse Practitioner Family
DX: E78.5 Hyperlipidemia, unspecified (principal); I11.9 Hypertensive heart disease without heart failure; I25.10 Atherosclerotic heart disease of native coronary artery without angina pectoris; I65.29 Occlusion and stenosis of unspecified carotid artery; J44.9 Chronic obstructive pulmonary disease, unspecified
CPT/HCPCS: 36415; 80061; 80076; 84439; 84443

== ENCOUNTER 2020-09-29 18:52 | Emergency (ER) | payer MEDICARE, OTHER, SELFPAY ==
[2020-09-29 18:57] VITALS: BP 131/70; PULSE 70; RESP 17; TEMP 36.9; O2SAT 98; BMI 33.3
--- NOTE | 2020-09-29 19:27 | HMH.EDUTC ---
[facility] [place] Clinical Impression: Bronchitis Sinusitis Qualifiers: Sinusitis location: unspecified location Chronicity: acute Recurrence: non-recurrent Qualified Code(s): J01.90 - Acute sinusitis, unspecified Disposition: Home, Self-Care Condition on Discharge: Good Instructions: DI for Sinusitis, DI for Acute Bronchitis Additional Instructions: Drink plenty of fluids. Take tylenol for pain or fever. Take the medications as directed. Follow up with your regular doctor. GO TO THE ER FOR ANY WORSENING SYMPTOMS Prescriptions: methylPREDNISolone [Medrol] 4 mg PO DIRECTED 6 Days #21 tab.ds.pk Transmission Status: Received by [facility] Benzonatate [Tessalon Perle 100mg Cap] 100 mg PO TIDP PRN #30 cap PRN Reason: Cough Transmission Status: Received by [facility] Azithromycin [Z-Deonte 250mg Tab*] 250 mg PO UD DOSE PK #6 tab Transmission Status: Received by [facility] Referrals: Provider,Referral, MD [Primary Care Provider] - Time of Disposition: 19:51 Medical Decision Making - Medical Records Medical records reviewed: No: I reviewed the patient's medical records. - Milton Inquiry Pt receiving controlled substance: No Vital Signs: 09/29/20 18:57 09/29/20 19:58 Temperature 98.4 F 98 F Temperature Source Oral Pulse Rate 72 Pulse Rate [Right] 70 Respiratory Rate 17 18 Blood Pressure 137/71 Blood Pressure [Right Arm] 131/70 Blood Pressure Mean [Right Arm] 90 02 Sat by Pulse Oximetry 98 Oxygen Delivery Method Room Air Orders (Tests/Meds): ED MEDICATIONS Discontinued Medications Generic Name Dose Route Start Last Admin Trade Name Freq PRN Reason Stop Dose Admin Ceftriaxone Sodium 1 gm 09/29/20 19:28 09/29/20 19:40 Ceftriaxone 1gm Vial IM 09/29/20 19:29 1 gm ONCE ONE Administration Protocol Lidocaine HCl 0 ml 09/29/20 19:28 09/29/20 19:39 Lidocaine 1% 5ml Pf Vial IM 09/29/20 19:29 2.5 ml ONCE ONE Administration Methylprednisolone Sodium Succinate 125 mg 09/29/20 19:28 09/29/20 19:40 Methylprednisolone Sod Succ 125mg Vial IM 09/29/20 19:29 125 mg ONCE ONE Administration [facility] [facility] [place] - General Stated complaint: head congestion Time Seen by Provider: 09/29/20 19:27 Mode of Arrival: Ambulatory Source of Information: Patient Limitations: No Limitations Description of Symptoms (Recalled from Triage Doc. by RN): pt c/o of sinus drainage green in color. HEENT Symptoms (Recalled from RN notes): Yes (green sinus drainage) Resp Symptoms (Recalled from RN notes): No Skin Symptoms (Recalled from RN notes): No MS Symptoms (Recalled from RN notes): No Functional Status (Recalled from RN notes): na - History of Present Illness Provider Complaint: She states that for the past 2 days she has been getting more congested in her sinuses and her chest. She has a cough and a poor appetite too. She denies any chest pain. - Related Data Home Medications Medication Instructions Recorded Confirmed Aspirin [Aspirin 81mg chewable 81 mg PO DAILY 04/03/17 04/13/20 tab] furosemide 20 mg tablet 40 mg PO DAILY tab 07/13/20 Previous Rx's Medication Instructions Recorded nitroglycerin 0.4 mg sublingual 0.4 mg SUBLINGUAL Q5-15M PRN #30 05/23/18 tablet tab atorvastatin 40 mg tablet 40 mg PO DAILY #90 tab 01/08/20 lisinopril 5 mg tablet 5 mg PO DAILY #90 tab 01/08/20 pantoprazole 40 mg tablet,delayed 40 mg PO DAILY #90 tab 01/08/20 release Azithromycin [Z-Deonte 250mg Tab*] 250 mg PO UD DOSE PK #6 tab 09/29/20 Benzonatate [Tessalon Perle 100mg 100 mg PO TIDP PRN #30 cap 09/29/20 Cap] methylPREDNISolone [Medrol] 4 mg PO DIRECTED 6 Days #21 09/29/20 tab.ds.pk Allergies Allergy/AdvReac Type Severity Reaction Status Date / Time Fish Containing Products Allergy Verified 09/29/20 19:07 - Worker's Comp Is this a Worker's Comp case?: No [facility] History - Hepatit
[2020-09-29 19:58] VITALS: BP 137/71; PULSE 72; RESP 18; TEMP 36.6
== END 2020-09-29 19:58 | disposition home or self-care (01) ==
PROVIDERS: Emergency Provider Nurse Practitioner Family
DX: J20.9 Acute bronchitis, unspecified (principal); J01.90 Acute sinusitis, unspecified; I25.10 Atherosclerotic heart disease of native coronary artery without angina pectoris; K21.9 Gastro-esophageal reflux disease without esophagitis; E78.5 Hyperlipidemia, unspecified; Z79.899 Other long term (current) drug therapy
CPT/HCPCS: G0463; 96372; 99202

== ENCOUNTER → 2021-01-11 14:41 | Outpatient (CLI) | payer MEDICARE, OTHER, SELFPAY ==
[2021-01-11 16:12] LABS: Blood Urea Nitrogen 13 mg/dl (7-17); Estimated Glomerular Filt Rate 121 ml/min (>60); GFR (African American) 147 ML/MIN (>60)
== END ==
PROVIDERS: Visit Provider Nurse Practitioner Family
DX: E78.5 Hyperlipidemia, unspecified (principal); I11.9 Hypertensive heart disease without heart failure; I25.10 Atherosclerotic heart disease of native coronary artery without angina pectoris; I65.29 Occlusion and stenosis of unspecified carotid artery; J44.9 Chronic obstructive pulmonary disease, unspecified
CPT/HCPCS: 36415; 82565; 84520

== ENCOUNTER → 2021-01-19 09:31 | Outpatient (CLI) | payer MEDICARE, OTHER, SELFPAY ==
--- NOTE | 2021-01-19 09:32 | CT_ITS ---
PROCEDURE: CT HEAD/BRAIN WO/W CON CLINICAL INDICATION: possible skull fracture No falls or injury, indentation mid skull/forehead, intermittent headaches COMPARISON: No exams were available for comparison TECHNIQUE: IV Contrast: 100ML Isovue 370 Axial images obtained. All CT scans at the facility use one or more dose reduction, viz: automated exposure control, ma/kV adjustment per patient size (including targeted exams where dose is matched to indication, i.e. head), or iterative reconstruction technique. FINDINGS: There is no evidence of skull fracture. The sinuses are clear. Nasal bones are intact. Orbital jain are intact. Mastoid air cells are well aerated except for 1 mastoid air cell on the left. There are frontal dermal calcifications. Soft tissues otherwise appear unremarkable. There is no edema. There is no lymphadenopathy. Orbits appear unremarkable. Postcontrast images demonstrate patent dural venous sinuses. There is no midline shift, mass effect, intra-axial extra-axial fluid collection or hemorrhage. Waters-white differentiation is normal. Visualized vascular structures appear unremarkable. IMPRESSION: No evidence of skull fracture. Dictated by: Mindi Kennedy MD 01/19/2021 11:46 Mindi Kenendy MD in [place] 01/19/2021 11:46
== END ==
PROVIDERS: PCP Nurse Practitioner Family; Visit Provider Nurse Practitioner Family
DX: M95.2 Other acquired deformity of head (principal); S02.91XA Unspecified fracture of skull, initial encounter for closed fracture
CPT/HCPCS: 70470; Q9967

== ENCOUNTER 2021-05-25 12:58 | Emergency (ER) | payer MEDICARE, OTHER, SELFPAY ==
[2021-05-25 14:35] VITALS: BP 128/89; PULSE 69; RESP 17; TEMP 36.9; O2SAT 97; BMI 33.3
--- NOTE | 2021-05-25 14:41 | HMH.EDUTC ---
[facility] [place] Clinical Impression: Sinusitis Qualifiers: Sinusitis location: unspecified location Chronicity: acute Recurrence: non-recurrent Qualified Code(s): J01.90 - Acute sinusitis, unspecified Disposition: Home, Self-Care Condition on Discharge: Good Instructions: DI for Sinusitis Additional Instructions: Drink plenty of fluids. Take tylenol or ibuprofen for pain or fever. Take the medications as directed. Follow up with your regular doctor. GO TO THE ER FOR ANY WORSENING SYMPTOMS Don't start the oral steroids until tomorrow, since you had the shot here today. Prescriptions: Albuterol Sulfate [Albuterol Sulfate Hfa] 2 puffs IH Q6HP PRN 30 Days #1 each PRN Reason: Shortness Of Breath Transmission Status: Received by [facility] Benzonatate [Benzonatate 100mg cap] 100 mg PO TIDP PRN #30 cap PRN Reason: Cough Transmission Status: Received by [facility] methylPREDNISolone [Medrol] 4 mg PO DIRECTED 6 Days #21 packet Transmission Status: Received by [facility] Azithromycin [Z-Deonte 250mg Tab*] 250 mg PO UD DOSE PK #6 tab Transmission Status: Received by [facility] Referrals: Provider,Referral, MD [Primary Care Provider] - Time of Disposition: 15:04 Medical Decision Making - Medical Records Medical records reviewed: No: I reviewed the patient's medical records. - [place] Inquiry Pt receiving controlled substance: No Vital Signs: 05/25/21 14:35 05/25/21 15:10 Temperature 98.4 F 98.4 F Temperature Source Oral Pulse Rate 69 Pulse Rate [Left] 69 Respiratory Rate 17 17 Blood Pressure 128/89 Blood Pressure [Right Arm] 128/89 Blood Pressure Mean [Right Arm] 102 02 Sat by Pulse Oximetry 97 - Lab Data Lab results reviewed: Yes: I reviewed the patient's lab results. Orders (Tests/Meds): ED MEDICATIONS Discontinued Medications Generic Name Dose Route Start Last Admin Trade Name Freq PRN Reason Stop Dose Admin Ceftriaxone Sodium 1 gm 05/25/21 14:50 05/25/21 15:00 Ceftriaxone 1gm Vial IM 05/25/21 14:51 1 gm ONCE ONE Administration Lidocaine HCl 0 ml 05/25/21 14:50 05/25/21 15:00 Lidocaine 1% 5ml Pf Vial IM 05/25/21 14:51 2 ml ONCE ONE Administration Methylprednisolone Sodium Succinate 125 mg 05/25/21 14:50 05/25/21 15:00 Methylprednisolone Sod Succ 125mg Vial IM 05/25/21 14:51 125 mg ONCE ONE Administration ORDERS Category Date Time Status Covid-19 Nasal PCR ([facility]) Routine Lab 05/25/21 14:29 [place]ceived [facility] [place] - General Stated complaint: sinus congestion, cough, fever, sore throat Time Seen by Provider: 05/25/21 14:41 Mode of Arrival: Ambulatory Source of Information: Patient Limitations: No Limitations Description of Symptoms (Recalled from Triage Doc. by RN): pt c/o a ONTIVEROS, nasal drainage/congestion and sinus pain. HEENT Symptoms (Recalled from RN notes): Yes Resp Symptoms (Recalled from RN notes): No Skin Symptoms (Recalled from RN notes): No MS Symptoms (Recalled from RN notes): No Functional Status (Recalled from RN notes): wnl - History of Present Illness Provider Complaint: She states that for the past 3 days she has had worsening sinus congestion. - Related Data Home Medications Medication Instructions Recorded Confirmed Aspirin [Aspirin 81mg chewable 81 mg PO DAILY 04/03/17 01/11/21 tab] Previous Rx's Medication Instructions Recorded atorvastatin 40 mg tablet See Rx Instructions .ROUTE 10/10/20 .COMPLEX #90 tab nitroglycerin 0.4 mg sublingual 0.4 mg SUBLINGUAL Q5-15M PRN #30 10/11/20 tablet tab furosemide 20 mg tablet See Rx Instructions .ROUTE 01/10/21 .COMPLEX #180 tab pantoprazole 40 mg tablet,delayed See Rx Instructions .ROUTE 01/10/21 release .COMPLEX #90 tab lisinopril 2.5 mg tablet 2.5 mg PO DAILY #30 tab 01/11/21 Albuterol Sulfate [Albuterol 2 puffs IH Q6HP PRN 30 Days #1 each 05/25/21 Sulfate Hfa
[2021-05-25 15:10] VITALS: BP 128/89; PULSE 69; RESP 17; TEMP 36.9
== END 2021-05-25 15:11 | disposition home or self-care (01) ==
PROVIDERS: Emergency Provider Nurse Practitioner Family
DX: J01.90 Acute sinusitis, unspecified (principal); J02.9 Acute pharyngitis, unspecified; R50.9 Fever, unspecified; I10 Essential (primary) hypertension; I25.10 Atherosclerotic heart disease of native coronary artery without angina pectoris; K21.9 Gastro-esophageal reflux disease without esophagitis; E78.5 Hyperlipidemia, unspecified; Z20.822 Contact with and (suspected) exposure to COVID-19; M19.90 Unspecified osteoarthritis, unspecified site; Z79.52 Long term (current) use of systemic steroids; Z79.82 Long term (current) use of aspirin; Z79.84 Long term (current) use of oral hypoglycemic drugs; Z79.899 Other long term (current) drug therapy; Z95.5 Presence of coronary angioplasty implant and graft; Z82.49 Family history of ischemic heart disease and other diseases of the circulatory system; Z80.9 Family history of malignant neoplasm, unspecified
CPT/HCPCS: 96372; 99213; C9803; G0463; J0696; U0003; U0005

== ENCOUNTER 2021-05-30 17:34 | Emergency (ER) | payer MEDICARE, OTHER, SELFPAY ==
[2021-05-30 17:35] VITALS: BP 145/85; PULSE 71; RESP 16; TEMP 36.7; O2SAT 98; BMI 33.3
--- NOTE | 2021-05-30 19:18 | HMH.EDUTC ---
[facility] [place] [facility] [place] Clinical Impression: Tendinopathy of left shoulder Disposition: Home, Self-Care Condition on Discharge: Good Instructions: Shoulder Tendinopathy, DI for Shoulder Pain Additional Instructions: Rest the extremity, Take the medications as prescribed. The muscle relaxer (cyclobenzaprine--Flexeril) will make you drowsy, so don't drive or operate heavy machinery after taking it. They probably won't help with your actual shoulder pain, but they may help you get comfortable some so you can sleep for little while. Don't start the oral steroids (medrol dose pack) until tomorrow, since you had the shots in here today. Follow up with Dr. Eli (orthopedics). I put in a referral but you need to call his office and schedule an appointment. Follow up with your regular doctor. GO TO THE ER FOR ANY WORSENING SYMPTOMS Prescriptions: Cyclobenzaprine HCl [Cyclobenzaprine 10mg Tab] 10 mg PO BIDP PRN #20 tab PRN Reason: Muscle Spasm Transmission Status: Received by [facility] methylPREDNISolone [Medrol] 4 mg PO DIRECTED 6 Days #21 packet Transmission Status: Received by [facility] Referrals: Provider,MD Cami [Primary Care Provider] - Edwar Eli MD [Staff Physician] - Time of Disposition: 19:51 Medical Decision Making - Medical Records Medical records reviewed: No: I reviewed the patient's medical records. - [place] Inquiry Pt receiving controlled substance: No Vital Signs: 05/30/21 17:35 05/30/21 20:02 Temperature 98.0 F 98.0 F Temperature Source Oral Oral Pulse Rate 70 Pulse Rate [Right] 71 Respiratory Rate 16 16 Blood Pressure 140/80 Blood Pressure [Right Arm] 145/85 H Blood Pressure Mean [Right Arm] 105 Blood Pressure Source Automatic Cuff Blood Pressure Source [Right Arm] Automatic Cuff Blood Pressure Position Sitting Blood Pressure Position [Right Arm] Sitting 02 Sat by Pulse Oximetry 98 Oxygen Delivery Method Room Air Room Air Orders (Tests/Meds): ED MEDICATIONS Discontinued Medications Generic Name Dose Route Start Last Admin Trade Name Freq PRN Reason Stop Dose Admin Ketorolac Tromethamine 60 mg 05/30/21 19:32 05/30/21 19:39 Ketorolac 60mg/2ml Vial IM 05/30/21 19:33 60 mg ONCE ONE Administration Methylprednisolone Sodium Succinate 125 mg 05/30/21 19:32 05/30/21 19:39 Methylprednisolone Sod Succ 125mg Vial IM 05/30/21 19:33 125 mg ONCE ONE Administration [facility] [place]PI - General Stated complaint: shoulder pain Time Seen by Provider: 05/30/21 19:18 Mode of Arrival: Ambulatory Source of Information: Patient Limitations: No Limitations Description of Symptoms (Recalled from Triage Doc. by RN): Pt c/o left shoulder pain, advises it started Saturday and that she has a previous hx of pain in that shoulder espeically with weather changes r/t to her arthritis HEENT Symptoms (Recalled from RN notes): No Resp Symptoms (Recalled from RN notes): No Skin Symptoms (Recalled from RN notes): No MS Symptoms (Recalled from RN notes): Yes (left shoulder pain) Functional Status (Recalled from RN notes): na - History of Present Illness Provider Complaint: She c/o left shoulder pain and stiffness for the past several days. She has periodic flareups like this. She denies any chest pain. She sometimes has to get a steroid shot for her shoulder issues when it flares up. - Related Data Home Medications Medication Instructions Recorded Confirmed Aspirin [Aspirin 81mg chewable 81 mg PO DAILY 04/03/17 01/11/21 tab] Previous Rx's Medication Instructions Recorded atorvastatin 40 mg tablet See Rx Instructions .ROUTE 10/10/20 .COMPLEX #90 tab nitroglycerin 0.4 mg sublingual 0.4 mg SUBLINGUAL Q5-15M PRN #30 10/11/20 tablet tab furosemide 20 mg tablet See Rx Instructions .ROUTE 01/10/21 .COMPLEX #180 tab pantoprazole 40 mg tablet,delayed See Rx Instructions .ROUTE 01/10/21 rel
[2021-05-30 20:02] VITALS: BP 140/80; PULSE 70; RESP 16; TEMP 36.7; O2SAT 98
== END 2021-05-30 20:03 | disposition home or self-care (01) ==
PROVIDERS: Emergency Provider Nurse Practitioner Family
DX: M75.02 Adhesive capsulitis of left shoulder (principal)
CPT/HCPCS: G0463; 96372; 99212

== ENCOUNTER → 2021-07-12 14:51 | Outpatient (CLI) | payer MEDICARE, OTHER, SELFPAY ==
[2021-07-12 15:21] LABS: Basophils # 0.1 K/mm3 (0-0.2); Basophils % 0.8 % (0.1-2.0); Eosinophils # 0.1 K/mm3 (0.0-0.4); Eosinophils % 0.9 % (0.1-12.0); Hematocrit 40.7 % (37.0-47.0); Hemoglobin 12.9 g/dL (12.2-16.2); Lymphocytes # 1.2 K/mm3 (0.7-4.5); Lymphocytes % 20.5 % (10-50); Mean Corpuscular HGB Conc 31.7 g/dL (31.8-35.4); Mean Corpuscular Hemoglobin 29.9 pg (27.0-31.2); Mean Corpuscular Volume 94.3 fl (81-99); Mean Platelet Volume 8.6 fl (7.4-10.4); Monocytes # 0.4 K/mm3 (0.1-1.0); Monocytes % 6.3 % (1.7-9.3); Neutrophils # 4.3 K/mm3 (1.8-7.8); Neutrophils % 71.4 % (37.0-80.0); Platelet Count 364 K/mm3 (142-424); Red Blood Count 4.32 M/mm3 (4.20-5.40); Red Cell Distribution Width 13.9 % (11.5-17.5)
[2021-07-12 15:54] LABS: Alanine Aminotransferase 21 U/L (12-78); Albumin Level 3.6 g/dl (3.5-5.0); Alkaline Phosphatase 91 U/L (38-126); Aspartate Amino Transferase 27 U/L (14-36); Bilirubin,Indirect 0.6 mg/dL (0.0-0.9); Bilirubin,Total 0.6 mg/dl (0.2-1.3); Bilirubin,Unconjugated 0.6 mg/dL (0.0-1.1); Chol/HDL Ratio 2.2 (1-3.5); Cholesterol 148 mg/dl (140-200); HDL Cholesterol 66 mg/dl (40-60); Total Protein,Serum 5.7 g/dl (6.3-8.2); Triglycerides 107 mg/dl (30-150); VLDL Cholesterol 21 mg/dL (0-40)
[2021-07-12 16:05] LABS: Direct LDL Cholesterol 62.11 mg/dL (100-129)
[2021-07-12 16:10] LABS: Free T4 (Free Thyroxine) 1.31 ng/dl (0.78-2.19)
[2021-07-12 16:26] LABS: Thyroid Stimulating Hormone 1.14 uIU/mL (0.465-4.68)
== END ==
PROVIDERS: Visit Provider Physician Assistant
DX: R06.00 Dyspnea, unspecified; E11.9 Type 2 diabetes mellitus without complications; E78.2 Mixed hyperlipidemia; I11.9 Hypertensive heart disease without heart failure; I25.10 Atherosclerotic heart disease of native coronary artery without angina pectoris; I65.23 Occlusion and stenosis of bilateral carotid arteries; K21.9 Gastro-esophageal reflux disease without esophagitis; I63.9 Cerebral infarction, unspecified
CPT/HCPCS: 36415; 80061; 80076; 84439; 84443; 85025

== ENCOUNTER → 2022-01-18 06:40 | Outpatient (CLI) | payer MEDICARE, OTHER, SELFPAY ==
--- NOTE | 2022-01-18 06:40 | CA_ITS ---
APPROVED REPORT EXAM: Comprehensive 2D, Doppler, and color-flow Echocardiogram Weed Controller: Lakisha Davis, ROBERTO, RVS Ht: 5 ft 5 in Wt: 204lbs BSA: 1.99 BP: 136/88 mmHg Indications: CAD, ALEGRIA, GERD, Abn EKG, COPD, DM, HTN, HLD 2D Dimensions IVSd 1.23 cm LVEF (Visual) 77.40 % PWd 1.11 cm LA Volume 33.80 mL LVDd 4.17 cm LA Volume Index 17.00 mL/m2 (M/F) 16-34 LVDs 2.27 cm Aortic Root 3.21 cm Left Atrium 2.67 cm LVOT 2.02 cm (M/F) 1.5-2.5 Ascending Aorta 3.29 cm M-Mode Dimensions LA Diam 3.57 cm (1.9-4.0) Ao Diam 3.31 cm (2.0-3.7) EPSs 0.81 cm TAPSE 2.21 (<1.7) LV Diastology E Decel Time 207.00 (160-240 msec) E/A Ratio 0.82 MED E' 8.90 (< 7 cm/sec) MED A' 10.60 cm/s E'/MED E' Ratio 8.88 (>14) LAT E' 8.00 (<10 cm/sec) LAT A' 11.00 cm/s E/LAT E' Ratio 9.88 (>14) Aortic Valve LVOT Max 106.00 (70-110 cm/s) LVOT VTI 22.51 cm AoV Peak Jed. 161.00 (50-130 cm/s) AI PHT 573.00 ms AO Peak GR. 10.40 mmHg AO Mean GR. 6.20 (<5 mmHg) AO VTI 38.18 (18-25 cm) JORGE (VTI) 1.89 (2.5-4.5 cm2) Mitral Valve MV A Velocity 97.00 (40-130 cm/s) E/A Ratio 0.82 MV Decel. Time 207.00 (160-240 ms) MV Mean Gr. 1.50 (<2mmHg) MV PHT 60.00 ms Pulmonary Valve PV Peak Velocity 84.00 (50-150 cm/s) MT End VMAX 119.00 cm/s Tricuspid Valve TR P. Velocity 194.00 cm/s RAP Estimate 10.00 mmHg RVSP 25.10 mmHg Left Ventricle Left atrium is mildly enlarged, left ventricle is normal size mild concentric left ventricular hypertrophy, estimated ejection fraction 55% with no regional wall motion abnormality, grade 1 diastolic dysfunction seen without tissue Doppler evidence of raise left atrial pressure. Right Ventricle Right atrium and right ventricle are mildly enlarged with normal contractility. Aortic Valve Aortic valve is thickened and calcified without aortic stenosis, there is mild aortic insufficiency Mitral Valve Mitral valve is grossly normal, there is trace mitral regurgitation. Tricuspid Valve Tricuspid valve grossly normal, there is trace tricuspid regurgitation, tricuspid regurgitation jet velocity is inadequate for calculation of the right ventricular systolic pressure Pulmonic Valve Pulmonic valve is poorly visualized. Great Vessels Aortic root is normal size. Inferior vena cava is normal size with normal inspiratory collapse. Pericardium No significant pericardial effusion noted. Conclusion 1. Mild biatrial enlargement, normal left ventricular size, mild concentric left ventricular hypertrophy, estimated ejection fraction 55% with no regional wall motion abnormality, grade 1 diastolic dysfunction seen without tissue Doppler evidence of raise left atrial pressure. 2. Mild aortic, trace mitral and tricuspid regurgitation. 3. No significant pericardial effusion noted. 4. Inferior vena cava is normal size with normal inspiratory collapse. Electronically signed by : Abdelrahman Pantoja MD 01/19/2022 14:59:01
--- NOTE | 2022-01-18 06:40 | CA_ITS ---
APPROVED REPORT Exam: Pharmacologic Technologist: Eda Heaton, Ht: 5 ft 5 in Wt: 204 lbs BSA: 1.99 m2 HR: 68 bpm BP: 115/71 mmHg Medical History Medications: Lisinopril,,,,, Aspirin,,,,, Pantoprazole,,,,, Atorvastatin,,,,, Albuterol,,,,, Nitroglycerin,,,,, Furosemide,,,,, Ozempic,,,,, Stress Test Details Test: LEXISCAN Reason for pharmacologic stress test: physical limitation. HR Resting HR: 69 bpm Max Heart Rate (APMHR): 147.276644 bpm Max HR Achieved: 97 bpm Target HR (85% APMHR): 124.342472 bpm % of APMHR: 65.99 Recovery HR: 71 bpm BP Resting BP: 115/71 mmHg Max BP: 134/76 mmHg Recovery BP: 127.0/74.0 mmHg ECG Resting ECG: NSR, incomplete RBBB, low voltage QRS, NS ST-T abns. Clinical Exercise duration: 04:00 min Highest Stage Achieved: Stress ECG Conclusion Symptoms: SOA, mild stomach & head discomfort. No CP. Arrhythmias/Ectopy: None ST-T Changes: No significant changes. Conclusion: Unremarkable Lexiscan stress. Myoview images reported separately. Electronically signed by : Abdelrahman Pantoja MD 01/19/2022 10:55:07
--- NOTE | 2022-01-18 06:40 | NM_ITS ---
APPROVED REPORT Exam: Nuclear Stress Test Indication: SOB, Fatigue, CAD, Hx of MD, HTN, DM, High cholesterol Patient Location: Outpatient Stress Tech: Eda Adam [place] Tech:Gerda Parada, ARRT, RT (R)(N) Ht: 5 ft 5 in Wt: 200 lbs Bra Size: 40B HR: 69 bpm BP: 115/71 mmHg BSA: 1.98 m2 TID: 1.01 BMI: 33.2 History: SOB, Fatigue, CAD, Hx of MD, HTN, DM, High cholesterol Procedure: Patient received a 0.4 mg of intravenous Lexiscan, resting heart rate 69 bpm, resting blood pressure 115/71 mmHg, with Lexiscan maximum heart rate achived was 97 bpm which is Less than 85 % of the maximum predicted heart rate and blood pressure was 134/76 mmHg. With Lexiscan, patient denied any complaint of chest pain. Electrocardiogram Resting electrocardiogram showed sinus rhythm, with Lexiscan there is less than 1.[address] segment depression noted from the baseline EKG. The EKG portion of the Lexiscan is nondiagnostic. Cardiac Stress and Resting SPECT Images: Cardiac Stress and Resting SPECT images were obtained using technetium 99m Myoview 31.5 mCi stress and 10.89 mCi at rest. Gated SPECT analysis of segmental wall motion and calculation of the ejection fraction also done. Prone images were also obtained. Cardiac stress and rest SPECT images show uniform myocardial activity without segmental perfusion abnormality, computer derived ejection fraction is 63% with no regional wall motion abnormality, right ventricle is normal size and contractility. Conclusion: 1. The EKG portion of the Lexiscan is nondiagnostic. 2. No scintigraphic evidence of reversible ischemia seen, computer derived ejection fraction is 63% with no regional wall motion abnormality, right ventricle is normal size and contractility. 3. Normal Lexiscan Myoview study. Electronically signed by : Abdelrahman Pantoja MD 01/19/2022 11:31:43
--- NOTE | 2022-01-18 10:36 | HMH.ITSHM ---
Current Home Medications as stated by this patient Jenna Hernández or client care representative. []VITAMIN B SEMAGLUTIDE PANTOPRAZOLE NITRO LISINOPRIL FUROSEMIDE VITAMIN D3 ATORVASTATIN ASA ALBUTEROL
== END ==
PROVIDERS: PCP Nurse Practitioner Family; Visit Provider Nurse Practitioner Family
DX: E11.9 Type 2 diabetes mellitus without complications (principal); E78.2 Mixed hyperlipidemia; I11.9 Hypertensive heart disease without heart failure; I25.10 Atherosclerotic heart disease of native coronary artery without angina pectoris; I65.23 Occlusion and stenosis of bilateral carotid arteries; R06.02 Shortness of breath
CPT/HCPCS: 78452; 93017; 93306; A9502; J2785

== ENCOUNTER 2022-03-30 12:52 | Day surgery (SDC) | payer MEDICARE, OTHER, SELFPAY ==
[2022-03-30 13:42] VITALS: BP 122/78; PULSE 78; RESP 18; TEMP 36.3; O2SAT 96; BMI 31.6
--- NOTE | 2022-03-30 15:02 | EXP.PAIN.PRO ---
Procedure Date: 03/30/22 Time: 15:02 Anesthesiologist:: Eddi Srinivasan MD Complications:: None Pre-procedure Diagnosis:: Acute herpes zoster in the T6-T7 dermatomal level on the left side Post-procedure Diagnosis:: Same Indications for Procedure:: This patient is a pleasant 71-year-old white female who developed shingles in the T7-T8 dermatomal level on the left side. She developed this rash approximately 3 days ago. She was given an antiviral and gabapentin. We will continue her gabapentin at 100 mg every night. We will also do a thoracic epidural to help with pain symptoms and drying of the rash. Procedure Details:: Informed consent was obtained and the risk and benefits of the procedure was explained to the patient. Patient was taken to the procedure room. The back was prepped using ChloraPrep. C-arm fluoroscopy was used to view the thoracic spine. The skin and subtest tissues were anesthetized using lidocaine. I placed a 17-gauge Touhy epidural needle into the T7-T8 interspace. I advanced using [id number] to air and fluoroscopic guidance until the epidural space was reached. Confirmation of needle placement in the epidural space was with dye. After this we injected 6 mL lidocaine 1.5% and Depo-Medrol 80 mg. The patient tolerated the procedure well with no complication. Plan and Disposition:: We will follow-up with this patient in 1 week. We will plan on a repeat thoracic epidural steroid injection at T7-T8.
[2022-03-30 15:03] VITALS: BP 120/78; PULSE 107; RESP 18; O2SAT 97
[2022-03-30 15:04] VITALS: BP 120/78; PULSE 107; RESP 18; O2SAT 97
[2022-03-30 15:14] VITALS: BP 131/87; PULSE 81; RESP 18; O2SAT 96
== END 2022-03-30 15:14 | disposition home or self-care (01) ==
PROVIDERS: PCP Nurse Practitioner Family; Visit Provider Anesthesiology
DX: B02.8 Zoster with other complications (principal)
CPT/HCPCS: 62321; J1040

== ENCOUNTER 2022-04-03 08:56 | Day surgery (SDC) | payer MEDICARE, OTHER, SELFPAY ==
[2022-04-03 08:59] VITALS: BP 130/85; PULSE 79; RESP 18; TEMP 36.5; O2SAT 98; BMI 31.1
[2022-04-03 09:17] VITALS: BP 146/87; PULSE 91; RESP 18; O2SAT 97
[2022-04-03 09:19] VITALS: BP 146/87; PULSE 91; RESP 18; O2SAT 98
--- NOTE | 2022-04-03 09:24 | EXP.PAIN.PRO ---
Procedure Date: 04/03/22 Time: 09:25 Anesthesiologist:: Meliton Rodriguez CRNA Complications:: None Pre-procedure Diagnosis:: T6-7 dermatome spread shingles. Post-procedure Diagnosis:: Same Indications for Procedure:: Patient is a pleasant 71-year-old female that has a T6-7 left side dermatome spread of shingles. Patient had T6-7 epidural steroid injection 5 days ago. She reports significant improvement in terms of her overall pain but the shingles. Upon examination the shingles are certainly drying up. Scabbing over. Seem to be healing quickly. She rates her pain today 4/10. We discussed the second T6-7 epidural steroid injection. She wishes to proceed. Procedure Details:: Informed consent was obtained and the risk and benefits of the procedure was explained to the patient.? Patient was taken to the procedure room.? The back was prepped using ChloraPrep.? C-arm fluoroscopy was used to view the thoracic spine.? The skin and subtest tissues were anesthetized using lidocaine.? I placed a 17-gauge Touhy epidural needle into the T7-T8 interspace.? I advanced using [id number] to air and fluoroscopic guidance until the epidural space was reached. After this we injected 4 mL lidocaine 1.5% and Depo-Medrol 80 mg.? The patient tolerated the procedure well with no complication. Plan and Disposition:: Patient was discharged without incident.
[2022-04-03 09:28] VITALS: BP 130/78; PULSE 80; RESP 18; O2SAT 98
== END 2022-04-03 09:28 | disposition home or self-care (01) ==
PROVIDERS: PCP Nurse Practitioner Family; Visit Provider Nurse Anesthetist, Certified Registered
DX: B02.8 Zoster with other complications (principal)
CPT/HCPCS: 62321; J1040

== ENCOUNTER → 2022-06-26 10:56 | Outpatient (CLI) | payer MEDICARE, OTHER, SELFPAY ==
[2022-06-26 11:51] LABS: Basophils % 0.6 % (0.1-2.0); Eosinophils # 0.1 K/mm3 (0.0-0.4); Eosinophils % 0.8 % (0.1-12.0); Hematocrit 43.2 % (37.0-47.0); Hemoglobin 13.6 g/dL (12.2-16.2); Lymphocytes # 0.9 K/mm3 (0.7-4.5); Lymphocytes % 14.3 % (10-50); Mean Corpuscular HGB Conc 31.5 g/dL (31.8-35.4); Mean Corpuscular Hemoglobin 29.5 pg (27.0-31.2); Mean Corpuscular Volume 93.8 fl (81-99); Monocytes # 0.3 K/mm3 (0.1-1.0); Monocytes % 5.1 % (1.7-9.3); Neutrophils # 5.2 K/mm3 (1.8-7.8); Neutrophils % 79.2 % (37.0-80.0); Platelet Count 377 K/mm3 (142-424); Red Blood Count 4.61 M/mm3 (4.20-5.40); White Blood Count 6.6 K/mm3 (4.8-10.8)
[2022-06-26 12:55] LABS: Alanine Aminotransferase 13 U/L (12-78); Albumin Level 3.9 g/dl (3.5-5.0); Alkaline Phosphatase 101 U/L (38-126); Anion Gap 9.9 mEq/L (5-15); Aspartate Amino Transferase 20 U/L (14-36); Bilirubin,Unconjugated 1.2 mg/dL (0.0-1.1); Blood Urea Nitrogen 9 mg/dl (7-17); Calcium 8.8 mg/dl (8.4-10.2); Carbon Dioxide 28 mmol/L (22.0-30.0); Chloride 103 mmol/L (98-107); Chol/HDL Ratio 2.5 (1-3.5); Cholesterol 142 mg/dl (140-200); Estimated Glomerular Filt Rate 98 ml/min (>60); GFR (African American) 119 ML/MIN (>60); Glucose 91 mg/dl (74-100); HDL Cholesterol 56 mg/dl (40-60); Magnesium 2.1 mg/dl (1.6-2.3); Potassium 3.9 mmoL/L (3.5-5.1); Sodium 137 mmol/L (136-145); Total Protein,Serum 6.2 g/dl (6.3-8.2); Triglycerides 127 mg/dl (30-150); VLDL Cholesterol 25 mg/dL (0-40)
[2022-06-26 13:06] LABS: Direct LDL Cholesterol 62.17 mg/dL (100-129)
[2022-06-26 13:11] LABS: Free T4 (Free Thyroxine) 1.25 ng/dl (0.78-2.19)
[2022-06-26 13:25] LABS: Thyroid Stimulating Hormone 0.88 uIU/mL (0.465-4.68)
== END ==
PROVIDERS: PCP Nurse Practitioner Family; Visit Provider Nurse Practitioner
DX: E11.9 Type 2 diabetes mellitus without complications (principal); E78.2 Mixed hyperlipidemia; I11.9 Hypertensive heart disease without heart failure; I25.10 Atherosclerotic heart disease of native coronary artery without angina pectoris; I65.23 Occlusion and stenosis of bilateral carotid arteries; J43.9 Emphysema, unspecified; K21.9 Gastro-esophageal reflux disease without esophagitis; R06.02 Shortness of breath; Z79.84 Long term (current) use of oral hypoglycemic drugs
CPT/HCPCS: 36415; 80048; 80061; 80076; 83735; 84439; 84443; 85025

== ENCOUNTER 2024-01-30 13:02 | Outpatient (CLI) | payer MEDICARE, OTHER, SELFPAY ==
--- NOTE | 2024-01-30 13:08 | CA_ITS ---
APPROVED REPORT EXAM: Comprehensive 2D, Doppler, and color-flow Echocardiogram Train Control Technician: Nevin Woodard RT(R) Ht: 5 ft 5 in Wt: 165lbs BSA: 1.82 BP: 100/62 mmHg Indications: AI, LVH, COPD, HTN, DM, SOB, hyperlipidemia 2D Dimensions LVEF (Mann's) 65.70 % F: 54 - 74 LV Volume 69.70 mL F: 46 - 106 LV Volume Index 38.3 mL/m2 F: 29 - 61 LA Volume 21.10 mL LA Volume Index 11.59 mL/m2 (M/F) 16-34 EF AP4 66.40 % EF AP2 64.6 % EF BP 65.7 % GL Strain -19.9 % M-Mode Dimensions RVDd 2.73 cm (0.9-2.6) LA Diam 3.13 cm (1.9-4.0) LVDd 4.66 cm (3.5-5.7) LVDs 3.49 cm (3.5-5.7) IVSd 1.17 cm (0.6-1.1) PWd 0.91 cm (0.6-1.1) EF (Teich) 49.70% FS 25.10% EDV (Teich) 100.30 mL ESV (Teich) 50.50 mL LV Diastology E Decel Time 143 (160-240 msec) E/A Ratio 0.78 Aortic Valve AI PHT 755.00 ms Mitral Valve MV A Velocity 82.0 (40-130 cm/s) E/A Ratio 0.78 Tricuspid Valve TR P. Velocity 272.00 cm/s RAP Estimate 10.00 mmHg RVSP 39.50 mmHg Left Ventricle The left ventricle is normal size. The left ventricular systolic function is normal. The left ventricular ejection fraction is within the normal range. Proximal septal thickening is noted. There is normal LV segmental wall motion. Transmitral Doppler flow pattern suggests impaired LV relaxation. LVEF is 55%. Right Ventricle The right ventricle is normal size. The right ventricular systolic function is normal. Atria The left atrium size is normal. The right atrium size is normal. There is no Doppler evidence of interatrial shunt. Aortic Valve The aortic valve leaflets are mildly thickened. There is no aortic valvular stenosis. Mild aortic regurgitation. Mitral Valve The mitral valve leaflets are mildly thickened. No evidence of mitral valve stenosis. Trace mitral regurgitation. Tricuspid Valve Tricuspid valve is grossly normal in structure and function. Mild tricuspid regurgitation. RVSP is 20-25 mmHg. Pulmonic Valve The pulmonary valve is normal in structure. Trace pulmonic regurgitation. Great Vessels The aortic root is normal in size. IVC is normal in size and collapses >50% with inspiration. Pericardium There is no pericardial effusion. Other Information Study Quality: Fair Conclusion Normal biventricular systolic function. Mild AI, mild TR. Electronically signed by : Doreen Plascencia MD 02/03/2024 00:47:01
[2024-01-30 14:23] LABS: Basophils # 0.1 K/mm3 (0-0.2); Basophils % 0.8 % (0.1-2.0); Eosinophils # 0.1 K/mm3 (0.0-0.4); Eosinophils % 1.6 % (0.1-12.0); Hemoglobin 13.6 g/dL (12.2-16.2); Lymphocytes # 1.3 K/mm3 (0.7-4.5); Lymphocytes % 16.2 % (10-50); Mean Corpuscular Hemoglobin 30.8 pg (27.0-31.2); Mean Corpuscular Volume 90.6 fl (81-99); Mean Platelet Volume 7.4 fl (7.4-10.4); Monocytes # 0.5 K/mm3 (0.1-1.0); Monocytes % 5.8 % (1.7-9.3); Neutrophils # 6.3 K/mm3 (1.8-7.8); Neutrophils % 75.7 % (37.0-80.0); Platelet Count 397 K/mm3 (142-424); Red Blood Count 4.41 M/mm3 (4.20-5.40); White Blood Count 8.3 K/mm3 (4.8-10.8)
[2024-01-30 14:46] LABS: Albumin Level 3.8 g/dl (3.5-5.0); Chloride 103 mmol/L (98-107)
[2024-01-30 14:47] LABS: Sodium 136 mmol/L (136-145)
[2024-01-30 14:49] LABS: Alanine Aminotransferase 11 U/L (12-78); Aspartate Amino Transferase 18 U/L (14-36); Bilirubin,Unconjugated 0.7 mg/dL (0.0-1.1); Blood Urea Nitrogen 8 mg/dl (7-17); Carbon Dioxide 27 mmol/L (22.0-30.0); Cholesterol 143 mg/dl (140-200); Estimated Glomerular Filt Rate 120 ml/min (>60); GFR (African American) 146 ML/MIN (>60); Total Protein,Serum 6.1 g/dl (6.3-8.2); Triglycerides 140 mg/dl (30-150); VLDL Cholesterol 28 mg/dL (0-40)
[2024-01-30 14:50] LABS: Alkaline Phosphatase 98 U/L (38-126); Bilirubin,Direct 0.1 mg/dl (0.0-0.4); Bilirubin,Indirect 0.7 mg/dL (0.0-0.9); Bilirubin,Total 0.8 mg/dl (0.2-1.3); Calcium 9.2 mg/dl (8.4-10.2); Chol/HDL Ratio 2.6 (1-3.5); Glucose 95 mg/dl (74-100); HDL Cholesterol 54 mg/dl (40-60)
[2024-01-30 15:02] LABS: Direct LDL Cholesterol 63.56 mg/dL (100-129)
[2024-01-30 15:06] LABS: Free T4 (Free Thyroxine) 1.23 ng/dl (0.78-2.19)
[2024-01-30 15:07] LABS: Triiodothryronine (T3) Uptake 36 % (23.5-40.5)
[2024-01-30 15:21] LABS: Thyroid Stimulating Hormone 0.65 uIU/mL (0.465-4.68)
[2024-01-30 15:22] LABS: Free Thyroxine Index 3.2 ug/dL (5.93-13.13); Thyroid Stimulating Hormone 0.68 uIU/mL (0.465-4.68)
== END 2024-01-30 23:59 | disposition home or self-care (01) ==
PROVIDERS: PCP Nurse Practitioner Family; Visit Provider Nurse Practitioner Family
DX: I35.1 Nonrheumatic aortic (valve) insufficiency (principal); R06.02 Shortness of breath; I11.9 Hypertensive heart disease without heart failure; I25.10 Atherosclerotic heart disease of native coronary artery without angina pectoris; I65.23 Occlusion and stenosis of bilateral carotid arteries; E78.5 Hyperlipidemia, unspecified
CPT/HCPCS: 36415; 80048; 80061; 80076; 84436; 84439; 84443; 84479; 85025; 93306

== ENCOUNTER 2024-11-03 10:57 | Outpatient (CLI) | payer MEDICARE, OTHER, SELFPAY ==
--- OUTSIDE RECORDS SUMMARY | 2024-11-03 11:05 | XMS_ITS | Clinical Summary ---
Author Organization Healthcare Address [address] [place] [address] Care Team Providers Care Data Scientist Name Role Phone Pcp, No Primary Care Provider Unavailabl e Family History Medical History Relation Name Comments Other cancer Father Other cancer Mother Relation Name Status Comments Father Mother Social History Tobacco Use Types Packs/Day Years Used Date Smoking Tobacco: Former Alcohol Use Standard Drinks/Week Comments No 0 (1 standard drink = 0.6 oz pur e alcohol) Comments Unknown Sex and Gender Information Value Date Recorded Sex Assigned at Not on file Legal Sex Female 6:56 PM EDT Gender Identity Not on file Sexual Orientation Not on file Plan of Treatment Health Maintenance Due Date Last Done Comments [facility]-Bone Density Scan 1948 [facility]-Depression Screening 1950 [facility]-Infant/Child/Adol SDOH Screenings 1950 [facility]- SDOH Screenings 1966 [facility]-Adult SDOH Screenings 1966 [facility]-DTaP,Tdap,and Td Vaccines (1 - Tdap) 09/17/1967 [facility]-Zoster Vaccines (1 of 2) 1998 [facility]-Pneumococcal Vaccine: 50+ Years (3 of 3 - PCV20 or PCV21) 03/05/2022 03/05/2017, 02/03/2010 [facility]-RSV Vaccine: 60+ Years or (1 - 1-dose 75+ series) 09/17/2023 [id number] Vaccine (4 - season) 2023 03/30/2021, 06/03/2020, 05/06/2020 [facility]-Influenza Vaccine (#1) 11/23/202401/15, 03/05/2017 HPV Vaccines Aged Out No longer eligi ble based on patient's age to complete this topic [facility]-HIB Vaccines Aged Out No longer e ligible based on patient's age to complete this topic [facility]-Hepatitis A Vaccines Aged Out No longer eligible based on patient's age to complete this topic [facility]-IPV Vaccines Aged Out No longer e ligible based on patient's age to complete this topic [facility]-Rotavirus Vaccines Aged Out No lo nger eligible based on patient's age to complete this topic Insurance MEDICARE [facility] Care Teams Data Scientist Relationship Specialty Start [place] [address] PCP - General Family Medicine 07/06/21
[2024-11-03 11:24] LABS: Hematocrit 40.6 % (37.0-47.0); Hemoglobin 12.9 g/dL (12.2-16.2); Immature Granulocytes % 0.2 %; Mean Corpuscular HGB Conc 31.8 g/dL (31.8-35.4); Mean Corpuscular Hemoglobin 29.4 pg (27.0-31.2); Mean Corpuscular Volume 92.5 fl (81-99); Nucleated Red Blood Cells % 0 %; Platelet Count 397 K/mm3 (142-424); Red Blood Count 4.39 M/mm3 (4.20-5.40); Red Cell Distribution Width-SD 45.1 fL; White Blood Count 8.4 K/mm3 (4.8-10.8)
[2024-11-03 12:00] LABS: Alanine Aminotransferase 12 U/L (12-78); Albumin Level 3.8 g/dl (3.5-5.0); Anion Gap 8.3 mEq/L (5-15); Aspartate Amino Transferase 20 U/L (14-36); Bilirubin,Direct 0.0 mg/dl (0.0-0.4); Bilirubin,Indirect 0.8 mg/dL (0.0-0.9); Bilirubin,Total 0.8 mg/dl (0.2-1.3); Bilirubin,Unconjugated 0.7 mg/dL (0.0-1.1); Blood Urea Nitrogen 8 mg/dl (7-17); Calcium 9.3 mg/dl (8.4-10.2); Carbon Dioxide 27 mmol/L (22.0-30.0); Chloride 104 mmol/L (98-107); Creatinine,Serum 0.50 mg/dl (0.52-1.04); Estimated Glomerular Filt Rate 120 ml/min (>60); GFR (African American) 145 ML/MIN (>60); Glucose 88 mg/dl (74-100); Magnesium 1.9 mg/dl (1.6-2.3); Potassium 4.3 mmoL/L (3.5-5.1); Sodium 135 mmol/L (136-145); Total Protein,Serum 5.9 g/dl (6.3-8.2); Triglycerides 84 mg/dl (30-150)
[2024-11-03 12:01] LABS: Alkaline Phosphatase 111 U/L (38-126); Cholesterol 128 mg/dl (140-200); HDL Cholesterol 53 mg/dl (40-60)
[2024-11-03 12:19] LABS: Free T4 (Free Thyroxine) 1.38 ng/dl (0.78-2.19)
[2024-11-03 12:31] LABS: Thyroid Stimulating Hormone 0.68 uIU/mL (0.465-4.68)
== END 2024-11-03 23:59 | disposition home or self-care (01) ==
LOC: LAB 10:58
PROVIDERS: PCP Nurse Practitioner Family; Visit Provider Nurse Practitioner Family
DX: I11.9 Hypertensive heart disease without heart failure (principal)
CPT/HCPCS: 36415; 80048; 80061; 80076; 83735; 84439; 84443; 85025

== ENCOUNTER 2024-11-10 09:23 | Outpatient (CLI) | payer MEDICARE, OTHER, SELFPAY ==
--- NOTE | 2024-11-10 09:30 | CA_ITS ---
FINAL REPORT CLINICAL HISTORY: KHOI, HTN, CAD (2 cardiac stents) FINDINGS: The peak systolic velocity of the right common carotid artery is 66 cm/s. The peak systolic velocity of the right internal carotid artery is 59 cm/s and end diastolic velocity 30 cm/s. The ICA/CCA ratio is 1.0. A mild to moderate amount of plaque is present. The right external carotid artery is patent. The right vertebral artery is patent with antegrade flow. The peak systolic velocity of the left common carotid artery is 73 cm/s. The peak systolic velocity of the left internal carotid artery is 71 cm/s and end diastolic velocity 27 cm/s. The ICA/CCA ratio is 1.0. A mild to moderate amount of plaque is present. The left external carotid artery is patent.The left vertebral artery is patent with antegrade flow. IMPRESSION: Less than 50% bilateral carotid stenoses. Bilateral patent vertebral arteries with antegrade flow. If indicated, CTA or MRA could further evaluate. Reviewed, Interpreted and Dictated by Rizwan Carballo MD Transcribed by Digna Barajas Authenticated and [facility] [place]
--- OUTSIDE RECORDS SUMMARY | 2024-11-10 09:31 | XMS_ITS | Clinical Summary ---
Author Organization Healthcare Address [address] [place] [address] Care Team Providers Care Medical Art Therapist Name Role Phone Pcp, No Primary Care [...] or (1 - 1-dose 75+ series) 09/17/2023 [id number] Vaccine (4 - season) 2023 03/30/2021, 06/03/2020, [...] age to complete this topic Insurance MEDICARE [facility] Care Teams Medical Art Therapist Relationship Specialty Start [place] [address] PCP - General Family Medicine 07/06/21
== END 2024-11-10 23:59 | disposition home or self-care (01) ==
LOC: RT 09:24
PROVIDERS: PCP Nurse Practitioner Family; Visit Provider Nurse Practitioner Family
DX: I65.23 Occlusion and stenosis of bilateral carotid arteries (principal); I10 Essential (primary) hypertension; I25.10 Atherosclerotic heart disease of native coronary artery without angina pectoris; Z95.5 Presence of coronary angioplasty implant and graft
CPT/HCPCS: 93880